=== PATIENT | female | born 2000 | race Caucasian/White ===

== ENCOUNTER 2023-12-26 16:01 | Emergency (ER) | payer OTHER, SELFPAY ==
--- NOTE | ~2023-12-26 | XR_ITS ---
EXAMINATION: XR CHEST CLINICAL INFORMATION: Shortness of breath COMPARISON: None available. TECHNIQUE: 2 views of the chest were obtained. FINDINGS: No significant abnormality is noted involving the heart, lungs, mediastinum, bony thorax or soft tissues. XR/XR chest 2V IMPRESSION: Unremarkable examination. Electronically signed by: Sam Philippe MD 12/26/2023 06:13 PM EDT
[2023-12-26 16:23] VITALS: BP 140/72; PULSE 84; RESP 18; TEMP 37; O2SAT 98; BMI 36.1
--- NOTE | 2023-12-26 16:23 | ED.SOB ---
HPI - SOB/Dyspnea General Chief Complaint: Dyspnea Stated Complaint: SOB Time Seen by Provider: 12/26/23 18:54 Source: patient, RN notes reviewed and old records reviewed Mode of arrival: ambulatory History of Present Illness ED Provider: Anusha Abdi PA-C [facility] Narrative: 23-year-old female with a past medical history of newly diagnosed asthma presenting to the ED complaining of dry cough, SOB x few days, and chest pain x few hours. Chest pain described as soreness. Admits has been requiring her rescue inhaler with more frequency. Denies sick contacts, recent travel, history of clots, cigarette smoking. Related Data Previous Rx's ?Medication ?Instructions ?Recorded prednisone 20 mg tablet 40 mg (2 x 20 mg) PO DAILY 5 days 12/26/23 #10 tabs Allergies Allergy/AdvReac Type Severity Reaction Status Date / Time No Known Allergies Allergy Verified 12/26/23 16:25 Review of Systems Review of Systems: Yes all other systems are reviewed and are negative Constitutional: Constitutional: Reports as per [facility] Past Medical History Attestation statement: The following information was validated with the patient. Source: old records reviewed Social History Social History Advance Directives: No Advance Directives Information Provided: No Do you have a plan to hurt others: No Plan Physical Exam Vital Signs: Vital Signs: Last Vital Signs Temp 97.8 F 12/26/23 20:11 Pulse 75 12/26/23 20:11 Resp 18 12/26/23 20:11 BP 117/54 L 12/26/23 20:11 Pulse Ox 100 12/26/23 20:11 O2 Del Method Room Air 12/26/23 20:11 BMI result Body Mass Index 36.1 Const: General: cooperative, healthy appearing and no acute distress Orientation/consciousness: patient oriented x3 Limitations: no limitations HEENT: Head: Yes normal to inspection and Yes atraumatic Ears: hearing grossly normal bilaterally General nose exam: Normal external nose present Face and sinus: Yes normal facial exam Eyes: General: appearance normal, both eyes and all related structures EOM: EOMs intact bilaterally Neck: Neck: Yes normal visual inspection and Yes no meningeal signs Resp: Effort & Inspection: normal respiratory effort and no respiratory distress Auscultation: wheezes expiratory wheezes and inspiratory wheezes Cardio: Rate: regular rate Heart sounds: S1 normal heart sound present and S2 normal heart sound present Skin: Rashes: no rashes Wounds: no wounds Neuro: General: patient oriented x3, tone normal and no meningeal signs Cranial nerves: Yes CN's II-XII intact bilaterally Gait exam (Neuro): Normal gait present Extrem: General: Yes normal to inspection Course Course Course Narrative: This is a Rapid Medical Exam performed in triage by Anusha Abdi PA-C. Full HPI, ROS and PE to be performed by primary ED provider. 23yo F w/PMHx asthma presenting to the ED c/o dry cough, SOB x few days & CP x few hours. Has been needing to use rescue inhaler more. denies sick contacts, travel, hx clots. denies cigarette smoking PE: talking in complete sentences. + dry cough appreciated,m +insp/exp wheeze Plan: viral testing, CXR, labs, ED bronch protocol -7215--no leukocytosis. Potassium mildly low at 3.1 > p.o. repletion ordered. Troponin negative -COVID/flu/RSV negative XR chest 2V IMPRESSION: Unremarkable examination. > on re-eval lungs with good air movement, slight end expiratory wheeze still appreciated > will give p.o. prednisone and additional DuoNeb -2019--on re-evaluation lungs CTA Results discussed with patient including worrisome signs and symptoms and strict return precautions, and when to return to the emergency department. They verbalized understanding and feel safe for discharge at this time. Medications Administered Discontinued Medications Generic Name Dose Route Start Last Admin Trade Name Fifi PRN Reason Stop Dose Admin Albuterol/Ipratropium 3 ml 12/26/23 19:11 12/26/23 19:14 Albuterol/Iprat 2.5/0.5mg 3 Ml Ampul.Neb INHALE 12/26/23 19:12 3 ml ONCE ONE Administration Albuterol Sulfate 2.5 mg/ 0 mg 12/26/23 16:37 12/26/23 16:40 Albuterol/Ipratropium 3 ml INHALE 12/26/23 16:38 1 dose ONCE ONE Administration Potassium Chloride 60 meq 12/26/23 19:10 12/26/23 19:16 Potassium Chloride Packet 20 Meq Packet PO 12/26/23 19:11 60 meq ONCE ONE Administration Prednisone 40 mg 12/26/23 19:01 12/26/23 19:11 Prednisone 20 Mg Tablet PO 12/26/23 19:02 40 mg ONCE ONE Administration Medical Decision Making Medical Decision Making [facility] Narrative: 23-year-old female with a past medical history of newly diagnosed asthma presenting to the ED complaining of dry cough, SOB x few days, and chest pain x few hours. On exam vital signs stable, NAD, nontoxic appearing, talking in complete sentences, no respiratory distress, inspiratory and expiratory wheezes appreciated. Concern for asthma exacerbation vs viral illness vs pneumonia. Lower suspicion for ACS/PE Plan: EKG, labs, viral testing, CXR, ED bronch protocol Please refer to course for remaining clinical decision making, interpretation of labs/imaging results, and discussions with consultants and/or family members. Differential Diagnosis Differential Diagnoses: The differential diagnosis associated with the presentation includes As above Admission/Observation Consideration of admission/observation: Escalation of care including admission/observation considered Lab Data [facility] Lab Attestation statement: I reviewed the patient's lab results. 12/26/23 17:45 12/26/23 17:45 Labs: Lab Results 12/26/23 Range/Units 17:45 WBC 5.6 (4.8-10.8) X10*3/uL RBC 5.56 H (4.20-5.50) X10*6/uL Hgb 15.3 (12.0-16.0) g/dl Hct 44.9 (37.0-47.0) % MCV 80.8 (80.0-98.0) fL MCH 27.5 (27.0-33.0) pg MCHC 34.1 (31.0-35.0) g/dl RDW 13.1 (11.0-16.0) % Plt Count 180 (160-400) X10*3/uL MPV 9.5 (9.4-12.3) fL Immature Gran % (Auto) 0.4 (0.0-0.4) % Neut % (Auto) 59.1 (45-73) % Lymph % (Auto) 30.1 (20-40) % Cache % (Auto) 6.1 (2-11) % Eos % (Auto) 3.8 (0-4) % Baso % (Auto) 0.5 (0-2) % Lymph # (Auto) 1.7 (1.2-4.9) X10*3/uL Cache # (Auto) 0.3 (0.1-1.2) X10*3/uL Eos # (Auto) 0.2 (0.0-0.4) X10*3/uL Baso # (Auto) 0.0 (0.0-0.2) X10*3/uL Abs Immat Gran (auto) 0.02 (0.00-0.03) X10*3/uL Absolute Neuts (auto) 3.3 (2.0-8.3) x10*3/uL Absolute Nucleated RBC 0.000 (0.0-0.012) X10*3/uL Nucleated RBC % (auto) 0.0 (0.0-0.2) /100WBC PT 11.3 (10.9-12.4) SEC INR 1.0 (0.9-1.1) Sodium 139 (135-145) mmol/L Potassium 3.1 L (3.3-5.1) mmol/L Chloride 106 (96-108) mmol/L Carbon Dioxide 24 (22-29) mmol/L Anion Gap 12 (12-20) BUN 14 (9-16) mg/dL Creatinine 0.76 (0.5-1.4) mg/dL Estim Creat Clear Calc 134.7 Estimated GFR > 60 Random Glucose 121 H (60-115) mg/dL Calcium 9.6 (8.4-10.2) mg/dL Magnesium 1.7 (1.6-2.6) mg/dL Total Bilirubin 0.3 (0.0-1.0) mg/dL Direct Bilirubin 0.1 (0.0-0.5) mg/dL AST 31 (5-31) U/L ALT 67 H (0-31) U/L Alkaline Phosphatase 84 (39-117) U/L Troponin I High Sens < 2.7 (<3.5-17.0) ng/L B-Natriuretic Peptide < 10 (<100) pg/mL Total Protein 7.5 (6.5-8.0) g/dL Albumin 4.2 (3.5-5.0) g/dL Influenza Type A (PCR) NEGATIVE (Negative) Influenza Type B (PCR) NEGATIVE (Negative) RSV RNA Qual (PCR) NEGATIVE (Negative) SARS-CoV-2 RNA (RT-PCR) NEGATIVE (Negative) Independent Interpretation I performed an independent interpretation of an: EKG and Plain X-Ray Radiology Impression Discussion of test interpretation with radiology: I have reviewed the radiologist's reading. External Record Review External record reviewed: Inpatient record, Office record, Outpatient record, Prior outpatient labs, Prior outpatient radiology, Primary care record and Outside ED record Tests considered The following testing was considered but not selected: As above Prescription Management I considered prescription management with: Other Chronic Conditions Patient?s care impacted by: Other (Asthma) Critical Care Time Critical Care Time Critical Care Time: Yes Total Critical Care Time: 40 Attestation: I have personally provided critical care time exclusive of time spent on separately billable procedures. Time includes review of lab data, radiology results, discussion with consultants, and monitoring for potential decompensation. Intervention performed as documented. Discharge Plan Discharge Clinical Impression: Asthma with exacerbation Patient Disposition: Home, Self-Care Instructions: Asthma (DC) Additional Instructions: Your blood work and x-ray are reassuring You tested negative for COVID, flu, RSV Continue to use your inhalers at home In addition take prednisone until completion Talk with her PCP about getting a machine at home If her symptoms persist or worsen return to the ED Prescriptions: New prednisone 20 mg tablet 40 mg PO DAILY 5 Days Qty: 10 0RF Referrals: Sofia Beal MD [Primary Care Provider] - 5 days Print Language: Irish
--- NOTE | 2023-12-26 16:24 | ECG_ITS ---
Test Reason : Shortness of breath Blood Pressure : / mmHG Vent. Rate : 083 BPM Atrial Rate : 083 BPM P-R Int : 118 ms QRS Dur : 080 ms QT Int : 354 ms P-R-T Axes : 025 021 014 degrees QTc Int : 415 ms Normal sinus rhythm with sinus arrhythmia Normal ECG No previous ECGs available Referred By: Anusha Abdi Electronically Signed By:NEMO MENDIOLA
[2023-12-26] MEDS: Albuterol Sulfate 2.5 MG, Albuterol/Iprat 2.5/0.5MG 3 ML 3 ML INHALE (16:40)
[2023-12-26 16:41] VITALS: PULSE 84; RESP 18; O2SAT 98
[2023-12-26 17:50] LABS: MANUAL DIFF FLAG NO
[2023-12-26 17:57] LABS: Basophils Percent Auto 0.5 % (0-2); Eosinophils Absolute Auto 0.2 X10*3/uL (0.0-0.4); Eosinophils Percent Auto 3.8 % (0-4); Hematocrit 44.9 % (37.0-47.0); Hemoglobin 15.3 g/dl (12.0-16.0); Imm Gran Abs Auto 0.02 X10*3/uL (0.00-0.03); Imm Gran Pct Auto 0.4 % (0.0-0.4); Lymphocytes Absolute Auto 1.7 X10*3/uL (1.2-4.9); Lymphocytes Percent Auto 30.1 % (20-40); Mean Corpuscular HGB Conc 34.1 g/dl (31.0-35.0); Mean Corpuscular Hemoglobin 27.5 pg (27.0-33.0); Mean Corpuscular Volume 80.8 fL (80.0-98.0); Mean Platelet Volume 9.5 fL (9.4-12.3); Monocytes Absolute Auto 0.3 X10*3/uL (0.1-1.2); Monocytes Percent Auto 6.1 % (2-11); Neutrophils Absolute Auto 3.3 x10*3/uL (2.0-8.3); Neutrophils Percent Auto 59.1 % (45-73); Platelet Count 180 X10*3/uL (160-400); Red Blood Count 5.56 X10*6/uL (4.20-5.50); Red Cell Distribution Width 13.1 % (11.0-16.0); White Blood Count 5.6 X10*3/uL (4.8-10.8)
[2023-12-26 18:03] LABS: Prothrombin Time 11.3 SEC (10.9-12.4)
[2023-12-26 18:16] LABS: B Type Natriuretic Peptide < 10 pg/mL (<100)
[2023-12-26 18:17] LABS: Alanine Aminotransferase 67 U/L (0-31); Albumin Level 4.2 g/dL (3.5-5.0); Alkaline Phosphatase 84 U/L (39-117); Anion Gap 12 (12-20); Aspartate Amino Transferase 31 U/L (5-31); Bilirubin Direct 0.1 mg/dL (0.0-0.5); Bilirubin Total 0.3 mg/dL (0.0-1.0); Blood Urea Nitrogen 14 mg/dL (9-16); Calcium 9.6 mg/dL (8.4-10.2); Carbon Dioxide 24 mmol/L (22-29); Chloride 106 mmol/L (96-108); Creatinine Clr Calc Pharmacy 134.7; Estimated Glomerular Filt Rate > 60; Glucose Random 121 mg/dL (60-115); Magnesium 1.7 mg/dL (1.6-2.6); Potassium 3.1 mmol/L (3.3-5.1); Sodium 139 mmol/L (135-145); Total Protein 7.5 g/dL (6.5-8.0)
[2023-12-26 18:18] LABS: Troponin-I High Sensitivity < 2.7 ng/L (<3.5-17.0)
[2023-12-26 18:43] LABS: Influenza A PCR NEGATIVE (Negative); Influenza B PCR NEGATIVE (Negative); Resp Syncy Virus RNA Qual PCR NEGATIVE (Negative); SARS COV2 PCR INHOUSE NEGATIVE (Negative)
[2023-12-26 19:11] VITALS: PULSE 82; RESP 18; O2SAT 97
[2023-12-26] MEDS: predniSONE 20 MG TABLET 40 MG PO (19:11)
[2023-12-26] MEDS: Albuterol/Iprat 2.5/0.5MG 3 ML AMPUL.NEB INHALE (19:14)
[2023-12-26] MEDS: Potassium Chloride Packet 20 MEQ PACKET 60 MEQ PO (19:16)
[2023-12-26 20:11] VITALS: BP 117/54; PULSE 75; RESP 18; TEMP 36.6; O2SAT 100
[2023-12-26 20:38] VITALS: BP 117/54; PULSE 75; RESP 18; TEMP 36.6; O2SAT 100
== END 2023-12-26 20:38 | disposition home or self-care (01) ==
PROVIDERS: Physician Assistant; Emergency Provider Internal Medicine; PCP Family Medicine
DX: J45.901 Unspecified asthma with (acute) exacerbation (principal); R06.02 Shortness of breath; Z03.818 Encounter for observation for suspected exposure to other biological agents ruled out
CPT/HCPCS: 0241U; 36415; 71046; 80048; 80076; 83735; 83880; 84484; 85025; 85610; 93005; 94640; 94664; 99284

== ENCOUNTER → 2023-12-26 16:24 | Outpatient (BNV) | payer OTHER, SELFPAY | PROVIDERS: Emergency Provider Internal Medicine; PCP Family Medicine; Visit Provider Internal Medicine | DX: R06.02 Shortness of breath (principal) | CPT/HCPCS: 93010 ==

== ENCOUNTER 2024-10-17 00:17 | Emergency (ER) | payer OTHER, SELFPAY ==
[2024-10-17 00:24] VITALS: BP 128/74; PULSE 74; RESP 17; TEMP 36.2; O2SAT 99; BMI 35.5
--- NOTE | 2024-10-17 00:38 | ECG_ITS ---
Test Reason : weakness Blood Pressure : */* mmHG Vent. Rate : 64 BPM Atrial Rate : 64 BPM P-R Int : 124 ms QRS Dur : 82 ms QT Int : 386 ms P-R-T Axes : 5 37 24 degrees QTcB Int : 398 ms Sinus rhythm with marked sinus arrhythmia Otherwise normal ECG When compared with ECG of 26-Dec-2023 18:19, No significant change was found Referred By: Generic ED Physician Electronically Signed By: THAI VALENZUELA MD
[2024-10-17 00:39] LABS: Glucose, Whole Blood 90 mg/dL (60-115)
[2024-10-17 01:08] LABS: Hematocrit 40.5 % (37.0-47.0); Hemoglobin 14.4 g/dl (12.0-16.0); Imm Gran Abs Auto 0.02 X10*3/uL (0.00-0.03); Imm Gran Pct Auto 0.3 % (0.0-0.4); Lymphocytes Absolute Auto 2.0 X10*3/uL (1.2-4.9); MANUAL DIFF FLAG NO; Mean Corpuscular HGB Conc 35.6 g/dl (31.0-35.0); Mean Corpuscular Hemoglobin 28.0 pg (27.0-33.0); Mean Corpuscular Volume 78.8 fL (80.0-98.0); NRBC Abs Auto 0.000 X10*3/uL (0.0-0.012); NRBC Pct Auto 0.0 /100WBC (0.0-0.2); Platelet Count 232 X10*3/uL (160-400); Red Blood Count 5.14 X10*6/uL (4.20-5.50); White Blood Count 6.7 X10*3/uL (4.8-10.8)
[2024-10-17 01:21] VITALS: BP 102/69; PULSE 65; RESP 15; TEMP 37; O2SAT 99
[2024-10-17 01:23] LABS: Alanine Aminotransferase 35 U/L (0-31); Albumin Level 4.2 g/dL (3.5-5.0); Alkaline Phosphatase 74 U/L (39-117); Anion Gap 14 (12-20); Aspartate Amino Transferase 24 U/L (5-31); Blood Urea Nitrogen 18 mg/dL (9-16); Calcium 9.3 mg/dL (8.4-10.2); Carbon Dioxide 22 mmol/L (22-29); Chloride 105 mmol/L (96-108); Creatinine Clr Calc Pharmacy 139.7; Estimated Glomerular Filt Rate > 60; Potassium 3.9 mmol/L (3.3-5.1); Sodium 137 mmol/L (135-145); Total Protein 7.1 g/dL (6.5-8.0)
[2024-10-17 01:33] LABS: Troponin-I High Sensitivity < 2.7 ng/L (<3.5-17.0)
[2024-10-17 01:45] LABS: Resp Syncy Virus RNA Qual PCR NEGATIVE (Negative); SARS COV2 PCR INHOUSE NEGATIVE (Negative)
[2024-10-17 02:31] VITALS: BP 108/73; PULSE 76; RESP 18; TEMP 36.3; O2SAT 98
[2024-10-17 04:06] LABS: Glucose, Whole Blood 92 mg/dL (60-115)
--- NOTE | 2024-10-17 04:08 | ED_ITS ---
HPI - General Adult General Chief complaint: Weakness Stated complaint: weak, dizzy, light headed Time Seen by Provider: 10/17/24 03:43 Source: patient Limitations: no limitations History of Present Illness ED Provider: Sherrie Boss PA-C HPI narrative: 24-year-old female with a history of SVT now status post ablation in 2011, hypoglycemia, PCOS on new metformin therapy initiated 10/07, who presents with dizziness since earlier today. Patient became profoundly weak and dizzy, she had observed abnormal level of consciousness and was found to be bradycardic at that time. Patient took a sugar pill, her symptoms improved. Denies associated palpitations, chest pain or shortness of breath. Denies recent illness, abdominal pain, nausea vomiting. She states she has been having diarrhea since she started the metformin. Related Data Previous Rx's ?Medication ?Instructions ?Recorded albuterol sulfate 2.5 mg/0.5 mL 5 mg inhalation Q4H MO N shortness 12/26/23 solution for nebulization of breath or wheezing #30 ea prednisone 20 mg tablet 40 mg (2 x 20 mg) PO DAILY 5 days 12/26/23 #10 tabs Allergies Allergy/AdvReac Type Severity Reaction Status Date / Time No Known Allergies Allergy Verified 10/17/24 00:28 Review of Systems 2 Review of Systems: Yes all other systems are reviewed and are negative Constitutional: Constitutional: Denies fatigue, Denies fever(s), Denies headache(s) and Reports weakness ENT: Reports dizziness and Denies headache(s) Cardiovascular: Cardiovascular: Denies chest pain, Reports syncope, Denies irregular heart rhythm, Denies palpitations and Denies dyspnea Respiratory: Respiratory: Denies dyspnea Gastrointestinal: Gastrointestinal: Denies abdominal pain, Reports diarrhea, Denies nausea and Denies vomiting Neurologic: Reports dizziness, Reports syncope, Denies headache(s) and Reports weakness Endocrine: Endocrine: Denies fatigue and Denies palpitations PMF Past Medical History Attestation statement: The following information was validated with the patient. Social History Social History Use of substances other than those prescribed or required for medical reasons: No Advance Directives: No Advance Directives Information Provided: Yes Do you have a plan to hurt others: No Plan Physical Exam ED Vital Signs: Vital Signs - 24 hr 10/17/24 00:24 10/17/24 01:21 10/17/24 02:31 Temperature 97.1 F 98.6 F 97.3 F Pulse Rate 74 65 76 Respiratory Rate 17 15 18 Blood Pressure 128/74 102/69 108/73 Pulse Oximetry 99 99 98 Oxygen Delivery Method Room Air Room Air Room Air BMI result Body Mass Index 35.5 Const Other: Alert well-appearing Orientation/consciousness: patient oriented x3 Resp Effort & Inspection: normal respiratory effort Cardio Other: Normal peripheral perfusion Skin Other: Warm dry no rash Neuro General: patient oriented x3, gait normal, no focal motor deficits and CN's II- XI intact bilaterally Psych Other: Cooperative Medical Decision Making Medical Decision Making MDM Narrative: 24-year-old female with a history of SVT now status post ablation in 2011, hypoglycemia, PCOS on new metformin therapy initiated 10/07, who presents with dizziness since earlier today. Patient became profoundly weak and dizzy, she had observed abnormal level of consciousness and was found to be bradycardic at that time. Patient took a sugar pill, her symptoms improved. Denies associated palpitations, chest pain or shortness of breath. Denies recent illness, abdominal pain, nausea vomiting. She states she has been having diarrhea since she started the metformin. Problem: Prior S VT, episodes of hypoglycemia, PCOS on metformin History: Per patient I have considered the following differential diagnoses: New arrhythmia, hypoglycemia, vasovagal near-syncope, anemia, dehydration, electrolyte abnormality, ACS Plan: With the documented hypoglycemia, and bradycardia, it sounds as if the patient had a vasovagal near syncopal episode secondary to the hypoglycemia. Her symptoms have improved with food and a sugar pill. There was no documented new arrhythmia to account for her symptoms. She has no underlying organic cause for her symptoms; i.e. anemia, dehydration or electrolyte abnormality. I discussed with the patient she should discontinue the use of the metformin given the hypoglycemic episodes. She is in agreement. A cardiac enzyme was also ordered, her symptoms are not consistent with ACS, the troponin was negative, and to note she has no risk factors for coronary artery disease, her heart score is 0. I have independently reviewed the following tests: Labs: No leukocytosis, not anemic, no electrolyte abnormality, blood sugar remains stable at 92, troponin < 2.7 EKG: Sinus rhythm rate of 64, sinus arrhythmia noted, no ischemic changes, QTC 398 Differential Diagnosis Differential Diagnoses: The differential diagnosis associated with the presentation includes See [facility] Admission/Observation Consideration of admission/observation: Escalation of care including admission/observation considered Not applicable Lab Data [facility] Lab Attestation statement: I reviewed the patient's lab results. 10/17/24 01:01 10/17/24 01:01 Labs: Lab Results 10/17/24 10/17/24 10/17/24 Range/Units 00:35 01:01 04:00 WBC 6.7 (4.8-10.8) X10*3/uL RBC 5.14 (4.20-5.50) X10*6/uL Hgb 14.4 (12.0-16.0) g/dl Hct 40.5 (37.0-47.0) % MCV 78.8 L (80.0-98.0) fL MCH 28.0 (27.0-33.0) pg MCHC 35.6 H (31.0-35.0) g/dl RDW 13.2 (11.0-16.0) % Plt Count 232 D (160-400) X10*3/uL MPV 9.7 (9.4-12.3) fL Immature Gran % (Auto) 0.3 (0.0-0.4) % Neut % (Auto) 58.6 (45-73) % Lymph % (Auto) 30.3 (20-40) % Piatt % (Auto) 7.9 (2-11) % Eos % (Auto) 2.5 (0-4) % Baso % (Auto) 0.4 (0-2) % Lymph # (Auto) 2.0 (1.2-4.9) X10*3/uL Piatt # (Auto) 0.5 (0.1-1.2) X10*3/uL Eos # (Auto) 0.2 (0.0-0.4) X10*3/uL Baso # (Auto) 0.0 (0.0-0.2) X10*3/uL Abs Immat Gran (auto) 0.02 (0.00-0.03) X10*3/uL Absolute Neuts (auto) 3.9 (2.0-8.3) x10*3/uL Absolute Nucleated RBC 0.000 (0.0-0.012) X10*3/uL Nucleated RBC % (auto) 0.0 (0.0-0.2) /100WBC Sodium 137 (135-145) mmol/L Potassium 3.9 D (3.3-5.1) mmol/L Chloride 105 (96-108) mmol/L Carbon Dioxide 22 (22-29) mmol/L Anion Gap 14 (12-20) BUN 18 H (9-16) mg/dL Creatinine 0.72 (0.5-1.4) mg/dL Estim Creat Clear Calc 139.7 Estimated GFR > 60 POC Glucose 90 92 (60-115) mg/dL Random Glucose 87 (60-115) mg/dL Calcium 9.3 (8.4-10.2) mg/dL Total Bilirubin 0.3 (0.0-1.0) mg/dL AST 24 (5-31) U/L ALT 35 H (0-31) U/L Alkaline Phosphatase 74 (39-117) U/L Troponin I High Sens < 2.7 (<3.5-17.0) ng/L Total Protein 7.1 (6.5-8.0) g/dL Albumin 4.2 (3.5-5.0) g/dL Influenza Type A (PCR) NEGATIVE (Negative) Influenza Type B (PCR) NEGATIVE (Negative) RSV RNA Qual (PCR) NEGATIVE (Negative) SARS-CoV-2 RNA (RT-PCR) NEGATIVE (Negative) Independent Interpretation I performed an independent interpretation of an: EKG Discharge Plan Discharge Clinical Impression: Hypoglycemia Patient Disposition: Home, Self-Care Instructions: Non-diabetic Hypoglycemia (ED) Additional Instructions: All of your screening labs including a cardiac enzymes were normal. There were no concerning changes on your EKG. I do believe your symptoms were secondary to hypoglycemia that occurred prior to arrival. This could also cause bradycardia, or abnormally low heart rate. I would discontinue the use of the metformin, purchase a glucometer and check your blood sugars throughout the day, I would also eat small frequent meals throughout the day. Make an appointment to follow up with your ore dryer. Prescriptions: No Action prednisone 20 mg tablet 40 mg PO DAILY 5 Days Qty: 10 0RF albuterol sulfate 2.5 mg/0.5 mL solution for nebulization 5 mg inhalation Q4H PRN (Reason: shortness of breath or wheezing) Qty: 30 0RF Stand Alone Forms: Work/School Release Interventions: ED Discharge Assessment Last Done: 10/17/24 04:20 Discharge Date/Time: 10/17/24 04:20 Print Language: Croatian
[2024-10-17 04:20] VITALS: BP 108/73; PULSE 76; RESP 18; TEMP 36.3; O2SAT 98
== END 2024-10-17 04:20 | disposition home or self-care (01) ==
PROVIDERS: Emergency Provider Emergency Medicine; PCP Family Medicine
DX: E16.2 Hypoglycemia, unspecified (principal); R53.1 Weakness; R42 Dizziness and giddiness; I49.8 Other specified cardiac arrhythmias; Z79.899 Other long term (current) drug therapy; Z03.818 Encounter for observation for suspected exposure to other biological agents ruled out
CPT/HCPCS: 36415; 80053; 82947; 84484; 85025; 87637; 93005; 99283; 99284

== ENCOUNTER → 2024-10-17 00:38 | Outpatient (BNV) | payer OTHER, SELFPAY | PROVIDERS: Emergency Provider Emergency Medicine; PCP Family Medicine; Visit Provider Internal Medicine Cardiovascular Disease | DX: R53.1 Weakness (principal) | CPT/HCPCS: 93010 ==